=== PATIENT | female | born 1995 | race Caucasian/White ===

== ENCOUNTER 2017-06-10 16:52 | Emergency (ER) | payer BC, OTHER ==
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
[2017-06-10] MEDS ORDERED: ONDANSETRON DISINTEGRATING 4 MG TAB PO ONE ×2 (20:09)
[2017-06-10] MEDS ORDERED: AZITHROMYCIN 250 MG TAB PO ONE (20:09)
[2017-06-11 01:07] VITALS: BP 114/72
== END 2017-06-10 23:23 | disposition home or self-care (01) ==
LOC: EEVIPCON 16:52
DX: T76.21XA Adult sexual abuse, suspected, initial encounter (principal)
CPT/HCPCS: J0696

== ENCOUNTER → 2018-05-21 | Outpatient (CLI) | payer BC | LOC: FCPNEURO 20:30 | PROVIDERS: ATTEND Student in an Organized Health Care Education/Training Program | DX: G47.33 Obstructive sleep apnea (adult) (pediatric) (principal) ==